=== PATIENT | female | born 1935 | race Caucasian/White ===

== ENCOUNTER 2022-02-17 22:15 | Inpatient (IN) | payer MEDICARE, OTHER ==
[~2022-02-17] VITALS: Ht 152.4 cm; Wt 40.8 kg
--- NOTE | 2022-02-17 20:45 | NUR ---
Received patient new admit from [facility] per [facility], not in respiratory distress, no complaint of pain, able to stand and transfer to bed with minimal assist. Routine admission care done, safety precautions provided, call light within reach.
[2022-02-17 21:15] VITALS: BP 180/60
[2022-02-17] MEDS ORDERED: CARV25TA2 PO (22:43)
[2022-02-17] MEDS ORDERED: SULF1TAB48 PO (22:48)
[2022-02-17] MEDS ORDERED: LOSA50TA39 PO (22:48)
[2022-02-17] MEDS ORDERED: PANT40TA49 PO (22:48)
[2022-02-18 08:00] VITALS: BP 172/65
[2022-02-18] MEDS: SULFAMETH/TRIMETH 800/160 MG TABLET PO SCH ×2 (08:41→20:12)
[2022-02-18] MEDS: LOSARTAN POTASSIUM 50 MG TABLET PO SCH ×2 (08:42→20:14)
[2022-02-18] MEDS: PANTOPRAZOLE SODIUM 40 MG TABLET.DR PO SCH (08:42)
[2022-02-18] MEDS: CARVEDILOL 25 MG TABLET PO SCH ×2 (08:42→20:13)
[2022-02-18 13:00] VITALS: BP 152/58
[2022-02-18] MEDS ORDERED: AMLODIPINE 10 MG TABLET PO SCH (15:15)
[2022-02-18 15:34] VITALS: BP 126/60
[2022-02-18] MEDS ORDERED: ALPRAZOLAM 0.5 MG TABLET PO ONE (19:00)
[2022-02-18 20:00] VITALS: BP 177/69
[2022-02-19 04:00] VITALS: BP 158/50
--- NOTE | 2022-02-19 04:42 | NUR ---
Awake alert and oriented x3-4 All needs attended. VSS. All due meds given. Slept well . Denies any pain nor any discomfort. Contact isolation maintained. VSS Kept comfortable. Continent of bowel and bladder. No acute distress noted. Will monitor patient.
[2022-02-19] MEDS: PANTOPRAZOLE SODIUM 40 MG TABLET.DR PO SCH (06:12)
[2022-02-19 08:00] VITALS: BP 159/66
[2022-02-19] MEDS: LOSARTAN POTASSIUM 50 MG TABLET PO SCH ×2 (08:33→20:56)
[2022-02-19] MEDS: AMLODIPINE 10 MG TABLET PO SCH (08:34)
[2022-02-19] MEDS: SULFAMETH/TRIMETH 800/160 MG TABLET PO SCH ×2 (08:34→20:56)
[2022-02-19] MEDS: CARVEDILOL 25 MG TABLET PO SCH ×2 (08:35→20:56)
[2022-02-19 12:00] VITALS: BP 119/68
[2022-02-19] MEDS: ENSURE ENLIVE (VAN) 240 ML LIQUID PO SCH (12:40)
[2022-02-19] MEDS: PROTEIN SUPPLEMENT (PROSTAT) 30 ML LIQUID PO SCH ×2 (12:41→17:45)
[2022-02-19 16:00] VITALS: BP 147/55
[2022-02-19 20:34] VITALS: BP 156/59
[2022-02-19] MEDS: ALPRAZOLAM 0.5 MG TABLET PO PRN (22:08)
--- NOTE | 2022-02-19 22:56 | NUR ---
Daughter wanted to speak to MD for update. Megha . Will endorse to the receiving nurse to inform am shift.
--- NOTE | 2022-02-19 23:00 | NUR ---
No distress noted. Patient is resting well. will endorse to receiving nurse for continuity of care.
--- NOTE | 2022-02-20 01:02 | NUR ---
RESTING IN BED, NO DISTRESS NOTED.
[2022-02-20 04:29] VITALS: BP 148/53
[2022-02-20] MEDS: PANTOPRAZOLE SODIUM 40 MG TABLET.DR PO SCH (07:07)
[2022-02-20 07:56] VITALS: BP 138/54
[2022-02-20] MEDS: SULFAMETH/TRIMETH 800/160 MG TABLET PO SCH ×2 (09:27→22:23)
[2022-02-20] MEDS: PROTEIN SUPPLEMENT (PROSTAT) 30 ML LIQUID PO SCH ×2 (09:29→17:08)
[2022-02-20] MEDS: ENSURE ENLIVE (VAN) 240 ML LIQUID PO SCH (09:29)
[2022-02-20] MEDS: AMLODIPINE 10 MG TABLET PO SCH (09:33)
--- NOTE | 2022-02-20 09:35 | NUR ---
Received patient awake, alert, oriented x 3, not in any form of distress, on 3LPM via nasal cannula with O2 sat 96%. She denies any pain or discomfort. Compliant with medications and care. Assisted with her needs. Call light and frequently used items placed within patient's reach.
[2022-02-20] MEDS: LOSARTAN POTASSIUM 50 MG TABLET PO SCH ×2 (11:13→22:25)
[2022-02-20] MEDS: CARVEDILOL 25 MG TABLET PO SCH ×2 (11:14→22:25)
--- NOTE | 2022-02-20 11:19 | NUR ---
Dr. Daily in the unit update given to MD and informed regarding BP 122/48 especially diastolic BP on the 40's and per MD it's OK to administer all due BP meds at this time.
[2022-02-20 12:00] VITALS: BP 120/47
[2022-02-20 16:00] VITALS: BP 106/49
--- NOTE | 2022-02-20 20:00 | NUR ---
resting in bed, no distress noted, needs attended to, due meds taken .
[2022-02-20 20:48] VITALS: BP 132/50
[2022-02-20] MEDS: ALPRAZOLAM 0.5 MG TABLET PO PRN (22:26)
--- NOTE | 2022-02-21 02:36 | NUR ---
resting in bed,needs attended to, call lite w/i reach..
[2022-02-21 04:52] VITALS: BP 112/48
[2022-02-21] MEDS: PANTOPRAZOLE SODIUM 40 MG TABLET.DR PO SCH (07:44)
[2022-02-21] MEDS: SULFAMETH/TRIMETH 800/160 MG TABLET PO SCH ×2 (08:59→21:46)
[2022-02-21] MEDS: AMLODIPINE 10 MG TABLET PO SCH (09:01)
[2022-02-21] MEDS: CARVEDILOL 25 MG TABLET PO SCH ×2 (09:01→21:48)
[2022-02-21] MEDS: PROTEIN SUPPLEMENT (PROSTAT) 30 ML LIQUID PO SCH ×2 (09:02→16:36)
[2022-02-21] MEDS: ENSURE ENLIVE (VAN) 240 ML LIQUID PO SCH (09:02)
[2022-02-21] MEDS: LOSARTAN POTASSIUM 50 MG TABLET PO SCH ×2 (09:02→21:48)
[2022-02-21 09:23] VITALS: BP 135/50
[2022-02-21 17:23] VITALS: BP 108/52
[2022-02-21 19:50] VITALS: BP 148/91
--- NOTE | 2022-02-21 22:00 | NUR ---
Patient alert oriented, able to make needs, known, assisted to toilet for bowel and bladder eliminations, complain of unable to sleep, will medicate as ordered by MD, cont to monitor.
[2022-02-21] MEDS: ALPRAZOLAM 0.5 MG TABLET PO PRN (22:01)
[2022-02-22 04:31] VITALS: BP 126/47
--- NOTE | 2022-02-22 05:57 | NUR ---
Patient asleep but arousable, no complain of pain at this time, oxygen at 2 lpm sat 94%, patient assisted with toileting, continent and incontinent at the same time. patient appears weak, assist with adl's, call light within reach.
[2022-02-22] MEDS: PANTOPRAZOLE SODIUM 40 MG TABLET.DR PO SCH (07:04)
[2022-02-22 08:03] VITALS: BP 117/45
[2022-02-22] MEDS: SULFAMETH/TRIMETH 800/160 MG TABLET PO SCH ×2 (08:15→21:09)
[2022-02-22] MEDS: PROTEIN SUPPLEMENT (PROSTAT) 30 ML LIQUID PO SCH ×2 (08:17→17:28)
[2022-02-22] MEDS: ENSURE ENLIVE (VAN) 240 ML LIQUID PO SCH (08:17)
[2022-02-22] MEDS: AMLODIPINE 10 MG TABLET PO SCH (10:00)
[2022-02-22] MEDS: LOSARTAN POTASSIUM 50 MG TABLET PO SCH ×2 (11:00→21:10)
[2022-02-22] MEDS: CARVEDILOL 25 MG TABLET PO SCH ×2 (11:00→21:09)
[2022-02-22 17:07] VITALS: BP 125/47
--- NOTE | 2022-02-22 18:38 | NUR ---
Patient is alert and oriented x3, no s/s of acute distress, breathing on 2liters of oxygen via nasal cannula. Losartan/carvedilol held due to low diastolic BP and HR. Patient receiving Bactrim for UTI and no noted side effect. No complain of pain noted. Patient resting comfortably.
[2022-02-22 20:00] VITALS: BP 130/52
[2022-02-23] MEDS: ALPRAZOLAM 0.5 MG TABLET PO PRN ×2 (00:17→22:36)
[2022-02-23 04:00] VITALS: BP 122/55
--- NOTE | 2022-02-23 05:24 | NUR ---
Patient asleep but arousable, no sob no chest pain, no complain of pain, needs min to max assist with adl's, assisted with toileting, complain of anxiety unable to fall asleep, given xanax as ordered with effective results, v/s stable, patient easily get tired during toileting, encouraged patient to rest in between activities. cont to monitor.
[2022-02-23] MEDS: PANTOPRAZOLE SODIUM 40 MG TABLET.DR PO SCH (06:19)
[2022-02-23 07:36] VITALS: BP 116/42
[2022-02-23] MEDS: SULFAMETH/TRIMETH 800/160 MG TABLET PO SCH ×2 (09:11→22:33)
[2022-02-23] MEDS: PROTEIN SUPPLEMENT (PROSTAT) 30 ML LIQUID PO SCH ×2 (09:11→17:12)
[2022-02-23] MEDS: ENSURE ENLIVE (VAN) 240 ML LIQUID PO SCH (09:12)
[2022-02-23] MEDS: AMLODIPINE 10 MG TABLET PO SCH (09:16)
[2022-02-23] MEDS: CARVEDILOL 25 MG TABLET PO SCH ×2 (09:17→22:35)
[2022-02-23] MEDS: LOSARTAN POTASSIUM 50 MG TABLET PO SCH ×2 (09:17→22:36)
[2022-02-23 16:26] VITALS: BP 132/51
--- NOTE | 2022-02-23 18:38 | NUR ---
Patient remains alert, oriented x 4, not in any form of distress. She tolerated room air with O2 sat of 94%. No complain of any pain or discomfort. Assisted promptly with her needs. Call light and frequently used items placed within patient's reach.
[2022-02-23 20:00] VITALS: BP 106/52
[2022-02-24 04:00] VITALS: BP 126/48
[2022-02-24] MEDS: PANTOPRAZOLE SODIUM 40 MG TABLET.DR PO SCH (06:23)
[2022-02-24 06:37] LABS: HEMATOCRIT 26.6 % (31.2-41.9); MEAN CORPUSCULAR HEMOGLOBIN 25.4 uug (24.7-32.8); MEAN CORPUSCULAR VOLUME 76.4 fL (75.5-95.3); PLATELET COUNT (AUTO) 479 K/uL (179-408)
[2022-02-24 07:06] LABS: THYROID STIMULATING HORMONE 2.31 mIU/mL (0.358-3.740)
[2022-02-24 07:21] LABS: BILIRUBIN,TOTAL 0.2 mg/dL (0.2-1.0); MAGNESIUM 1.7 mg/dL (1.8-2.4); PHOSPHOROUS 3.9 mg/dL (2.5-4.9); POTASSIUM 4.6 mmol/L (3.5-5.1); TOTAL PROTEIN, SERUM 6.4 g/dL (6.4-8.2)
--- NOTE | 2022-02-24 07:27 | NUR ---
uneventful night, email producer distress noted.
[2022-02-24 07:48] VITALS: BP 121/48
[2022-02-24] MEDS: LOSARTAN POTASSIUM 50 MG TABLET PO SCH ×2 (09:27→23:46)
[2022-02-24] MEDS: ENSURE ENLIVE (VAN) 240 ML LIQUID PO SCH (09:28)
[2022-02-24] MEDS: AMLODIPINE 10 MG TABLET PO SCH (09:28)
[2022-02-24] MEDS: CARVEDILOL 25 MG TABLET PO SCH ×2 (09:28→21:00)
[2022-02-24] MEDS: PROTEIN SUPPLEMENT (PROSTAT) 30 ML LIQUID PO SCH ×2 (09:29→17:06)
[2022-02-24] MEDS: OMEGA-3 FATTY ACIDS/FISH OIL CAPSULE PO SCH (09:35)
[2022-02-24] MEDS: ACIDOPHILUS/BULGARICUS CHEW TAB PO SCH ×2 (09:35→23:46)
[2022-02-24] MEDS ORDERED: MAGNESIUM OXIDE 400 MG TABLET PO ONE (10:00)
--- NOTE | 2022-02-24 13:32 | NUR ---
INTERDISCIPLINARY TEAM CONFERENCE
[2022-02-24 15:49] VITALS: BP 118/47
[2022-02-24 20:00] VITALS: BP 138/45
--- NOTE | 2022-02-25 02:57 | NUR ---
AMBULATES WITH WALKER, NEEDS ATTENDED TO. DUE MEDS GIVEN.
[2022-02-25 04:37] VITALS: BP 107/41
[2022-02-25 07:34] VITALS: BP 126/43
[2022-02-25] MEDS: PANTOPRAZOLE SODIUM 40 MG TABLET.DR PO SCH (07:39)
[2022-02-25] MEDS: ACIDOPHILUS/BULGARICUS CHEW TAB PO SCH ×2 (08:56→20:58)
[2022-02-25] MEDS: OMEGA-3 FATTY ACIDS/FISH OIL CAPSULE PO SCH (08:56)
[2022-02-25] MEDS: LOSARTAN POTASSIUM 50 MG TABLET PO SCH ×2 (08:56→20:58)
[2022-02-25] MEDS: AMLODIPINE 10 MG TABLET PO SCH (08:56)
[2022-02-25] MEDS: ENSURE ENLIVE (VAN) 240 ML LIQUID PO SCH (08:58)
[2022-02-25] MEDS: PROTEIN SUPPLEMENT (PROSTAT) 30 ML LIQUID PO SCH ×2 (08:58→16:59)
[2022-02-25] MEDS: CARVEDILOL 25 MG TABLET PO SCH ×2 (08:58→20:58)
[2022-02-25 15:40] VITALS: BP 104/47
[2022-02-25 20:00] VITALS: BP 126/54
[2022-02-25] MEDS: ALPRAZOLAM 0.5 MG TABLET PO PRN (22:34)
[2022-02-26 04:00] VITALS: BP 119/53
[2022-02-26] MEDS: PANTOPRAZOLE SODIUM 40 MG TABLET.DR PO SCH (06:14)
[2022-02-26 07:40] VITALS: BP 143/56
[2022-02-26] MEDS: AMLODIPINE 10 MG TABLET PO SCH ×2 (08:58→09:14)
[2022-02-26] MEDS: ACIDOPHILUS/BULGARICUS CHEW TAB PO SCH ×2 (08:59→09:13)
[2022-02-26] MEDS: CARVEDILOL 25 MG TABLET PO SCH ×2 (09:00→21:07)
[2022-02-26] MEDS: LOSARTAN POTASSIUM 50 MG TABLET PO SCH ×2 (09:01→21:05)
[2022-02-26] MEDS: ENSURE ENLIVE (VAN) 240 ML LIQUID PO SCH ×3 (09:05→17:28)
[2022-02-26] MEDS: PROTEIN SUPPLEMENT (PROSTAT) 30 ML LIQUID PO SCH ×2 (09:05→17:29)
[2022-02-26] MEDS: OMEGA-3 FATTY ACIDS/FISH OIL CAPSULE PO SCH (09:52)
[2022-02-26] MEDS ORDERED: CYANOCOBALAMIN 1000 MCG/ML VIAL IM SCH (12:00)
--- NOTE | 2022-02-26 16:14 | NUR ---
Patient is a 86 year old female. She is alert and oriented x4, verbally responsive. She can make her needs know. She is breathing on room air, appears to be a little weak and tired. She as been sleeping on and off. Ambulatory with walker and had physical therapy today. She denied pain when asked. No s/s of acute distress noted. Spoke with daughter earlier today and she request for patient to get B12 injection. Sn informed doctor and he gave new orders for 1000 mcg IM every other day. First B12 shot was administered @1200, patient tolerated well with no discomfort noted. Patient's Losartan held due to pulse pressure.
[2022-02-26 16:21] VITALS: BP 137/65
[2022-02-26 20:47] VITALS: BP 118/76
[2022-02-26] MEDS: ALPRAZOLAM 0.5 MG TABLET PO PRN (21:16)
[2022-02-27 04:25] VITALS: BP 116/46
--- NOTE | 2022-02-27 05:09 | NUR ---
Slept well, no complaint of pain, not in distress, able to ambulate to the bathroom with walker needs minimal assistance.
[2022-02-27] MEDS: PANTOPRAZOLE SODIUM 40 MG TABLET.DR PO SCH (05:55)
[2022-02-27 08:19] VITALS: BP 108/47
[2022-02-27] MEDS: OMEGA-3 FATTY ACIDS/FISH OIL CAPSULE PO SCH (09:37)
[2022-02-27] MEDS: LOSARTAN POTASSIUM 50 MG TABLET PO SCH ×2 (09:37→20:26)
[2022-02-27] MEDS: ENSURE ENLIVE (VAN) 240 ML LIQUID PO SCH ×3 (09:38→16:20)
[2022-02-27] MEDS: ACIDOPHILUS/BULGARICUS CHEW TAB PO SCH ×2 (09:38→20:26)
[2022-02-27] MEDS: PROTEIN SUPPLEMENT (PROSTAT) 30 ML LIQUID PO SCH ×2 (09:39→16:20)
[2022-02-27] MEDS: CARVEDILOL 25 MG TABLET PO SCH (09:39)
[2022-02-27 16:45] VITALS: BP 116/46
[2022-02-27] MEDS: LOPERAMIDE HCL 2 MG CAPSULE PO PRN ×2 (17:34→21:31)
[2022-02-27] MEDS: CARVEDILOL 12.5 MG TABLET PO SCH (17:34)
[2022-02-27 20:25] VITALS: BP 111/46
[2022-02-27] MEDS: ALPRAZOLAM 0.5 MG TABLET PO PRN (22:14)
--- NOTE | 2022-02-28 01:40 | NUR ---
AAOx3-4 Needs attended.Patient here for deconditioning and general weakness. VSS. Kept comfortable. All due meds given as scheduled. Tolerated well. Continent of bowel and bladder. Patient having periods of diarrhea. Immodium given as ordered. Xanax also given for anxiety. Will monitor patient. Fall precautions maintained. Siderails up for safety.
[2022-02-28 04:44] VITALS: BP 111/46
[2022-02-28] MEDS: PANTOPRAZOLE SODIUM 40 MG TABLET.DR PO SCH (06:03)
[2022-02-28 06:49] LABS: HEMATOCRIT 27.6 % (31.2-41.9); MEAN CORPUSCULAR HEMOGLOBIN 25.5 uug (24.7-32.8); MEAN CORPUSCULAR VOLUME 78.9 fL (75.5-95.3); PLATELET COUNT (AUTO) 624 K/uL (179-408)
[2022-02-28 07:15] LABS: BILIRUBIN,TOTAL 0.4 mg/dL (0.2-1.0); CREATININE 0.9 mg/dL (0.6-1.3); MAGNESIUM 1.7 mg/dL (1.8-2.4); PHOSPHOROUS 3.8 mg/dL (2.5-4.9)
[2022-02-28 08:00] VITALS: BP 141/62
[2022-02-28] MEDS: OMEGA-3 FATTY ACIDS/FISH OIL CAPSULE PO SCH (09:51)
[2022-02-28] MEDS: AMLODIPINE 10 MG TABLET PO SCH (09:51)
[2022-02-28] MEDS: ACIDOPHILUS/BULGARICUS CHEW TAB PO SCH ×2 (09:51→20:31)
[2022-02-28] MEDS: LOSARTAN POTASSIUM 50 MG TABLET PO SCH ×2 (09:51→20:32)
[2022-02-28] MEDS: CARVEDILOL 12.5 MG TABLET PO SCH ×2 (09:51→17:44)
[2022-02-28] MEDS: ENSURE ENLIVE (VAN) 240 ML LIQUID PO SCH ×3 (09:52→17:43)
[2022-02-28] MEDS: PROTEIN SUPPLEMENT (PROSTAT) 30 ML LIQUID PO SCH ×2 (09:52→17:43)
[2022-02-28] MEDS ORDERED: MAGNESIUM OXIDE 400 MG TABLET PO ONE ×2 (11:15)
[2022-02-28 15:30] VITALS: BP 132/51
[2022-02-28 20:18] VITALS: BP 150/65
[2022-02-28] MEDS: ALPRAZOLAM 0.5 MG TABLET PO PRN (22:54)
[2022-03-01 04:25] VITALS: BP 123/47
[2022-03-01] MEDS: PANTOPRAZOLE SODIUM 40 MG TABLET.DR PO SCH (06:13)
[2022-03-01 08:29] VITALS: BP 131/53
[2022-03-01] MEDS: ACIDOPHILUS/BULGARICUS CHEW TAB PO SCH ×2 (08:56→21:49)
[2022-03-01] MEDS: CARVEDILOL 12.5 MG TABLET PO SCH ×2 (08:56→17:09)
[2022-03-01] MEDS: OMEGA-3 FATTY ACIDS/FISH OIL CAPSULE PO SCH (08:56)
[2022-03-01] MEDS: LOSARTAN POTASSIUM 50 MG TABLET PO SCH ×2 (08:57→21:46)
[2022-03-01] MEDS: AMLODIPINE 10 MG TABLET PO SCH (08:57)
[2022-03-01] MEDS: ENSURE ENLIVE (VAN) 240 ML LIQUID PO SCH ×3 (08:58→17:09)
[2022-03-01] MEDS: PROTEIN SUPPLEMENT (PROSTAT) 30 ML LIQUID PO SCH ×2 (08:58→17:10)
[2022-03-01 16:47] VITALS: BP 135/56
--- NOTE | 2022-03-01 19:00 | NUR ---
RECEIVED PT IN BED, RESTING, ALERT,ORIENTEDX 3, NO DISTRESS NOTED.DAUGHTER AT BEDSIDE, EXPRESSED CONCERNS REGARDING PATIENT'S WEAKNESS AND LOSS OF APPETITE.ACTIVE LISTENING PROVIDED. RELAYED CONCERNS TO DR. LEHMAN.
[2022-03-01 20:00] VITALS: BP 111/46
[2022-03-01] MEDS: ALPRAZOLAM 0.5 MG TABLET PO PRN (21:50)
[2022-03-01] MEDS: REMEDY ESSENTIAL ZINC PASTE 113 GM TOP PRN (21:51)
--- NOTE | 2022-03-02 | NUR ---
HS CARE RENDERED,NEEDS ATTENDED TO,ASSISTED TO BR, VOIDED FREELY WELL.KEPT WARM AND COMFORTABLE. SLEPT ON AND OFF.
[2022-03-02 04:00] VITALS: BP 124/47
[2022-03-02] MEDS: PANTOPRAZOLE SODIUM 40 MG TABLET.DR PO SCH (06:45)
[2022-03-02 06:49] LABS: HEMATOCRIT 26.8 % (31.2-41.9); MEAN CORPUSCULAR HEMOGLOBIN 25.8 uug (24.7-32.8); MEAN CORPUSCULAR VOLUME 79.5 fL (75.5-95.3); PLATELET COUNT (AUTO) 496 K/uL (179-408)
[2022-03-02 07:03] LABS: BILIRUBIN,TOTAL 0.2 mg/dL (0.2-1.0); CREATININE 0.8 mg/dL (0.6-1.3); MAGNESIUM 1.5 mg/dL (1.8-2.4); PHOSPHOROUS 3.9 mg/dL (2.5-4.9); POTASSIUM 4.1 mmol/L (3.5-5.1); TOTAL PROTEIN, SERUM 6.6 g/dL (6.4-8.2)
[2022-03-02] MEDS: ACIDOPHILUS/BULGARICUS CHEW TAB PO SCH ×2 (09:28→21:31)
[2022-03-02] MEDS: OMEGA-3 FATTY ACIDS/FISH OIL CAPSULE PO SCH (09:28)
[2022-03-02] MEDS: LOSARTAN POTASSIUM 50 MG TABLET PO SCH ×2 (09:29→21:30)
[2022-03-02] MEDS: CARVEDILOL 12.5 MG TABLET PO SCH ×2 (09:29→18:00)
[2022-03-02] MEDS: AMLODIPINE 10 MG TABLET PO SCH (09:29)
[2022-03-02] MEDS: PROTEIN SUPPLEMENT (PROSTAT) 30 ML LIQUID PO SCH ×2 (09:30→18:10)
[2022-03-02] MEDS: ENSURE ENLIVE (VAN) 240 ML LIQUID PO SCH ×3 (09:30→18:10)
[2022-03-02] MEDS ORDERED: MAGNESIUM OXIDE 400 MG TABLET PO ONE (10:00)
[2022-03-02 11:30] VITALS: BP 140/57
[2022-03-02 15:04] VITALS: BP 123/59
[2022-03-02 17:55] LABS: *BILIRUBIN,URIN NEGATIVE (NEGATIVE); *CLARITY,URINE CLEAR (CLEAR); *COLOR,URINE YELLOW (YELLOW); *KETONES,URINE NEGATIVE (NEGATIVE); *UROBILINOGEN,URINE 0.2 E.U./dl (NORMAL); LEUKOCYTE ESTERASE ,URINE 1+ (NEGATIVE); NITRITE, URINE NEGATIVE (NEGATIVE); PH,URINE 5.5 (5.0-8.0); UGLUCOSE NEGATIVE (NEGATIVE)
[2022-03-02 18:28] LABS: *BLOOD, URINE TRACE (NEGATIVE)
[2022-03-02 20:00] VITALS: BP 140/53
[2022-03-02] MEDS: ALPRAZOLAM 0.5 MG TABLET PO PRN (21:31)
[2022-03-02] MEDS: REMEDY ESSENTIAL ZINC PASTE 113 GM TOP PRN (21:33)
[2022-03-02 23:32] LABS: BACTERIA,URINE NONE SEEN /HPF (NONE SEEN); RBC,URINE 0-3 /HPF (0-3); WBC,URINE NONE SEEN /HPF (0-3)
[2022-03-02 23:33] LABS: SQUAMOUS EPITHELIAL CELL,UR FEW /HPF (NONE SEEN)
[2022-03-03 04:00] VITALS: BP 133/15
[2022-03-03] MEDS: PANTOPRAZOLE SODIUM 40 MG TABLET.DR PO SCH (06:11)
[2022-03-03 07:48] VITALS: BP 126/54
[2022-03-03] MEDS: LOSARTAN POTASSIUM 50 MG TABLET PO SCH (09:12)
[2022-03-03] MEDS: ACIDOPHILUS/BULGARICUS CHEW TAB PO SCH (09:12)
[2022-03-03] MEDS: CARVEDILOL 12.5 MG TABLET PO SCH (09:12)
[2022-03-03 09:13] VITALS: BP 126/54
[2022-03-03] MEDS: PROTEIN SUPPLEMENT (PROSTAT) 30 ML LIQUID PO SCH (09:13)
[2022-03-03] MEDS: AMLODIPINE 10 MG TABLET PO SCH (09:13)
[2022-03-03] MEDS: OMEGA-3 FATTY ACIDS/FISH OIL CAPSULE PO SCH (09:13)
[2022-03-03] MEDS: ENSURE ENLIVE (VAN) 240 ML LIQUID PO SCH ×2 (09:13→13:25)
[2022-03-03 09:59] LABS: *OCCULT BLOOD STOOL NEGATIVE (NEGATIVE)
--- NOTE | 2022-03-03 15:49 | NUR ---
1500H discharged patient to home via private car with daughter. skin intact. belonging list signed. no distress identified. dc instruction given and noted with understanding. vs WDL. prescription provided per MD order.
== END 2022-03-03 15:00 | disposition home health service (06) | DRG 444 ==
PROVIDERS: ADMIT Physical Medicine & Rehabilitation Pain Medicine; ATTEND Physical Medicine & Rehabilitation Pain Medicine
DX: K81.9 Cholecystitis, unspecified (principal); E43 Unspecified severe protein-calorie malnutrition; K85.90 Acute pancreatitis without necrosis or infection, unspecified; N39.0 Urinary tract infection, site not specified; E87.1 Hypo-osmolality and hyponatremia; R78.81 Bacteremia; R53.1 Weakness; B96.20 Unspecified Escherichia coli [E. coli] as the cause of diseases classified elsewhere; D50.9 Iron deficiency anemia, unspecified; E78.5 Hyperlipidemia, unspecified; E88.09 Other disorders of plasma-protein metabolism, not elsewhere classified; I10 Essential (primary) hypertension; K44.9 Diaphragmatic hernia without obstruction or gangrene; E83.42 Hypomagnesemia; E86.1 Hypovolemia; Z88.8 Allergy status to other drugs, medicaments and biological substances; E53.8 Deficiency of other specified B group vitamins
CPT/HCPCS: 36415; 83690; 83735; 84100; 84443; 85025; 87086; 87177; 89055; 97161; 97535-GO-CO; A4663; J3420